=== PATIENT | female | born 1945 | race Caucasian/White ===

== ENCOUNTER 2018-12-14 23:09 | Emergency (ER) | payer MEDICARE ==
[~2018-12-14] VITALS: Ht 165.1 cm; Wt 72.6 kg
[2018-12-14 23:35] VITALS: BP 172/77
--- NOTE | 2018-12-14 23:52 | NUR ---
VISUAL ACQUITY IN PROGRESS
[2018-12-14] MEDS ORDERED: TETRACAINE HCL/PF 0.5% UD 2 ML BOTTLE ONE (23:58)
[2018-12-14] MEDS ORDERED: FLUORESCEIN SODIUM OPHTH 1 EA STRIP ONE (23:58)
[2018-12-15] MEDS ORDERED: PROPARACAINE HCL OPHTH 15 ML BOTTLE OP ONE
[2018-12-15] MEDS ORDERED: FLUORESCEIN SODIUM OPHTH 1 EA STRIP OP ONE
== END 2018-12-15 00:20 | disposition home or self-care (01) ==
LOC: ER 23:13
DX: S05.02XA Injury of conjunctiva and corneal abrasion without foreign body, left eye, initial encounter (principal); H11.32 Conjunctival hemorrhage, left eye; X58.XXXA Exposure to other specified factors, initial encounter; Y93.89 Activity, other specified; Y92.89 Other specified places as the place of occurrence of the external cause; Y99.8 Other external cause status
CPT/HCPCS: 99283; A4606